=== PATIENT | male | born 1995 | race Caucasian/White ===

== ENCOUNTER 2017-07-20 21:23 | Emergency (ER) | payer OTHER ==
[~2017-07-20] VITALS: Ht 167.6 cm; Wt 121.4 kg
[2017-07-20 21:27] VITALS: TEMP 36.6; Ht 167.6 cm; Wt 121.4 kg
[2017-07-20] MEDS ORDERED: LIDOCAINE 1% BUFFERED INJ 5 ML VIAL INFIL ONE ×3 (21:45→22:45)
[2017-07-20] MEDS ORDERED: ESCI10TA17 PO (21:47)
[2017-07-20] MEDS ORDERED: BACITRACIN OINT 15 GM TUBE EXT ONE (23:00)
[2017-07-20 23:14] VITALS: BP 147/90; PULSE 89; O2SAT 95
--- NOTE | 2017-07-20 23:33 | EMERGENCY ROOM VISIT NOTE ---
History First contact with patient: 21:27 Chief Complaint: TOE PAIN, INJURY Stated Complaint: INGROWN TOENAIL History of Present Illness The patient is a 22 year old male who presents to the Emergency Room with complaints of an ingrown nail on the left great toe. He reports significant swelling over the past several days. The patient reports that he has had ingrown nails on the same toe. He has not followed up with a wood setter or his family doctor for this condition. He has not noticed any drainage, and rates his pain a 6 out of 10. Tetanus immunization is up-to-date. He denies any recent injury or risk of foreign body to the toe. Review of Systems 6 system review was performed and was negative except for pertinent positives and negatives as indicated in history of present illness Past Medical/Surgical History Medical Problems: (1) MRSA (methicillin resistant Staphylococcus aureus) Medical Problems: (1) MRSA (methicillin resistant Staphylococcus aureus) Surgical Problems: (1) History of tonsillectomy Family History FH: diabetes mellitus FH: heart disease FH: hypertension FH: lung disease Social History Smoking Status: Never Smoker Alcohol Use: none Marital Status: single Housing Status: lives with family Occupation Status: employed Current/Historical Medications Scheduled Escitalopram (Lexapro), 10 MG PO DAILY Physical Exam Vital Signs Date Time Temp Pulse Resp B/P (MAP) Pulse Ox O2 Delivery O2 Flow Rate FiO2 07/20/17 23:14 89 18 147/90 95 07/20/17 21:27 36.6 90 18 127/86 96 Room Air Physical Exam CONSTITUTIONAL: Healthy and well nourished. Alert and oriented X 3 with positive affect. Patient does not appear in any significant distress or discomfort. HEENT: Normocephalic, atraumatic. Pupils equal, round and reactive. NECK: Full active range of motion without discomfort. MUSCULOSKELETAL: Examination of the left great toe shows notable edema of the lateral nail fold. The nail plate is not elevated. No subungual hematoma. The patient otherwise has no erythema of the toe, or lymphangitic streaking across the dorsum of the foot. Capillary refill is less than 2 seconds. INTEGUMENTARY: No rash or other significant dermatologic conditions noted. NEUROLOGIC: No focal neurologic deficits noted. Medical Decision & Procedures Medications Administered Medications (Trade) Dose Ordered Sig/Citlali Route Start Time Stop Time Status Last Admin Dose Admin Lidocaine HCl (Buffered Lidocaine 1% Inj) 20 ml ONE ONCE INFIL 07/20/17 22:30 07/20/17 22:31 DC 07/20/17 22:23 20 ML Bacitracin (Bacitracin Oint) 1 appln NOW ONCE EXT 07/20/17 23:00 07/20/17 23:01 DC 07/20/17 22:58 1 APPLN Procedure For the procedures were performed under digital block anesthesia after receiving verbal consent from the patient. Using buffered 1% lidocaine without epinephrine, good digital block anesthesia was administered, although the patient required a total of 12 mL of lidocaine. The toe was painted with iodine and allowed to dry. Using iris scissors, the lateral aspect of the nail plate was sharply excised longitudinally and under the proximal nail fold to the germinal matrix. The lateral margin of the nail was then removed, being careful to avoid any trauma to the underlying nailbed. A 1 cm incision was then made laterally into the underlying nail fold with minimal purulent drainage. The area was irrigated with normal saline, then a bacitracin pressure dressing was applied, leaving the tip of the toe exposed for the patient to make certain that the dressing is not applied to tightly. ED Course Patient history and physical exam were performed. Nurse's notes were reviewed. Vital signs were reviewed and were normal. Ingrown nail resection and I&D for paronychia was performed under digital block anesthesia. The patient was encouraged to keep the wound clean and covered with an antibiotic ointment and dressing. Bupropion or Tylenol as needed for pain. He was instructed to watch for any signs of developing infection. I did encourage the patient to follow- up with a wood setter or orthopedic surgeon to discuss recurrent ingrown nails. The patient was happy with plan of care, voiced understanding of all discharge instructions, and denied any pain at the conclusion of my exam. Medical Decision Medication Reconcilliation Current Medication List: was personally reviewed by me Blood Pressure Screening Patient's blood pressure: Normal blood pressure Impression Primary Impression: Ingrown nail of great toe of left foot Additional Impression: Paronychia of great toe, left Departure Information Dispostion Home / Self-Care Referrals Flakito Sullivan D.O. Forms HOME CARE DOCUMENTATION FORM, IMPORTANT VISIT INFORMATION Patient Instructions My [facility] Additional Instructions Keep wound clean and covered with an antibiotic ointment and dressing until it heals. Ibuprofen or Tylenol as needed for pain. Suggest follow-up with a wood setter or orthopedic surgeon (Dr. Sullivan) to discuss further treatment of recurrent ingrown nails. Problem Qualifiers
== END 2017-07-20 23:14 | disposition home or self-care (01) ==
LOC: C.EDB 21:24 → C.EDD 23:14
DX: L03.032 Cellulitis of left toe (principal); L60.0 Ingrowing nail; Z86.14 Personal history of Methicillin resistant Staphylococcus aureus infection; Z83.3 Family history of diabetes mellitus; Z82.49 Family history of ischemic heart disease and other diseases of the circulatory system; Z79.899 Other long term (current) drug therapy